=== PATIENT | female | born 1985 | race Caucasian/White ===

== ENCOUNTER 2018-09-11 10:42 | Emergency (ER) | payer SELFPAY ==
[2018-09-11] MEDS ORDERED: Acetaminophen 500 MG TAB ONE (11:10)
[2018-09-11] MEDS ORDERED: Ondansetron PF 4 MG/2 ML Vial ONE (11:10)
[2018-09-11 11:35] LABS: #Eosinphils 0.2 thou/uL (0.0-0.7); #Lymphocytes 1.6 thou/uL (1.20-3.40); #Monocytes 0.5 thou/uL (0.11-0.59); #Neutrophils 3.3 thou/uL (1.40-6.50); %Basophils 0.5 % (0.0-1.0); %Eosinophils 3.4 % (0.0-10.0); %Lymphocytes 28.1 % (21.0-51.0); %Monocytes 8.1 % (0.0-10.0); %Neutrophils 59.9 % (42.0-75.0); Hemoglobin 14.5 g/dL (12.0-16.0); Mean Corpuscular HGB CONC 33.3 g/dL (32.0-36.0); Mean Corpuscular Hemoglobin 32.6 pg (27.0-31.0); Mean Platelet Volume 7.9 fL (7.4-10.4); Platelet Count 224 thou/uL (130-400); RBC Distribution Width 11.6 % (11.5-14.5); Red Blood Cell (RBC) Count 4.45 mill/uL (4.20-5.40); White Blood Cell (WBC) Count 5.6 thou/uL (4.8-10.8)
[2018-09-11 11:49] LABS: BHCG - Serum Negative (NEGATIVE); Pregs Control Background? CLEAR/WHITE (CLR/WHITE); Pregs Control Bar Appear? YES (CONTROL BAR)
[2018-09-11] MEDS ORDERED: Ketorolac Tromethamine 30 MG/ML VIAL ONE (11:51)
[2018-09-11] MEDS ORDERED: Lorazepam 2 MG/ML VIAL ONE (11:51)
[2018-09-11 11:57] LABS: ALT (SGPT) 11 U/L (8-55); AST (SGOT) 17 U/L (5-34); Albumin 4.7 g/dL (3.5-5.0); Alkaline Phosphatase 46 U/L (40-150); Anion Gap 13 mmol/L (10-20); BUN (Urea Nitrogen) 12 mg/dL (7.0-18.7); Bilirubin, Total 0.8 mg/dL (0.2-1.2); Calc. Creatinine Clearance 0 mL/min (70-130); Calcium 10.1 mg/dL (7.8-10.44); Carbon Dioxide 24 mmol/L (22-29); Chloride 107 mmol/L (98-107); Estimated GFR-MDRD 70; Globulin 2.7 g/dL (2.4-3.5); Glucose 101 mg/dL (70-105); Lipase 24 U/L (8-78); Potassium 3.8 mmol/L (3.5-5.1); Protein, Total 7.4 g/dL (6.0-8.3); Sodium 140 mmol/L (136-145)
[2018-09-11 12:01] LABS: CKMB 1.4 ng/mL (0-6.6); Troponin I Less than 0.010 ng/mL (< 0.028)
[2018-09-11 12:05] LABS: Bilirubin Negative (Negative); Blood, Urine Negative (Negative); Clarity CLEAR (Clear); Glucose, Urine (Dipstick) Negative (Negative); Leukocyte Trace (Negative); Nitrite Negative (Negative); Protein, Urine (Dipstick) Negative (Neg-Trace); Urobilinogen 0.2 mg/dL (0.2-1.0); pH, Urine 7.5 (5.0-9.0)
[2018-09-11 12:07] LABS: Hyaline Casts/LPF 0-3 HYALINE CAST LPF (0-3 Hyaline); Squamous Epithelial 0-3 HPF (0-3)
[2018-09-11 12:13] LABS: Bacteria/HPF 1+ HPF (None Seen); RBC/HPF 0-3 HPF (0-3)
[2018-09-11 12:26] LABS: Acetaminophen Less than 6.0 mcg/mL (10.0-30.0); Alcohol Less than 10 mg/dL (Less than 10); Salicylate Less than 8.0 mg/dL (15.0-30.0)
--- NOTE | 2018-09-11 13:30 | CT ---
CT BRAIN WITHOUT CONTRAST: Date: 09/11/18 HISTORY: 32-year-old female with syncope. FINDINGS: No evidence of infarct, hemorrhage, midline shift, or abnormal extra-axial fluid collections are seen . The ventricular size is normal and the basilar cisterns are patent. The bony calvarium is intact. T he visualized paranasal sinuses and mastoid air cells are well aerated. IMPRESSION: No CT evidence of acute intracranial process. POS: [facility]
--- NOTE | 2018-09-13 23:08 | EKG ---
Test Reason : Blood Pressure : / mmHG Vent. Rate : 079 BPM Atrial Rate : 079 BPM P-R Int : 142 ms QRS Dur : 074 ms QT Int : 394 ms P-R-T Axes : 079 057 028 degrees QTc Int : 451 ms Normal sinus rhythm with sinus arrhythmia Possible Left atrial enlargement Cannot rule out Anterior infarct , age undetermined Abnormal ECG Confirmed by LUIS GAINES ([id number]), editorial director EILEEN JULES ([id number]) on 09/13/2018 11:07:25 PM Referred By: Confirmed By:LUIS GAINES
== END 2018-09-11 13:03 | disposition home or self-care (01) ==
LOC: ERS 10:42
DX: E86.0 Dehydration (principal); R55 Syncope and collapse; F43.0 Acute stress reaction; F41.9 Anxiety disorder, unspecified
CPT/HCPCS: 36415; 36416; 70450; 80053; 80307; 81003; 81015; 82553; 83690; 84443; 84484; 84703; 85025; 85379; 93005; 94760; 96361; 96374; 96375; J1885; J2060; J2405